=== PATIENT | male | born 1960 | race Caucasian/White ===

== ENCOUNTER 2016-11-24 02:24 | Day surgery (SDC) | payer OTHER ==
[~2016-11-24] VITALS: Ht 182.9 cm; Wt 78.3 kg
[2016-11-24] VITALS (11 sets, daily range): BP systolic 115–154; BP diastolic 75–91; PULSE 65–85; RESP 13–24; O2SAT 95–98
[~2016-11-24 02:24] MED LIST: ASPI-973 PO; NITR0.4T6 SL
[2016-11-24] MEDS ORDERED: Heparin 5,000 Units/500 mL NS Premix IV ONE (11:12)
[2016-11-24] MEDS ORDERED: Heparin 1,000 Units/500 mL NS Premix IV ONE (11:12)
--- NOTE | 2016-11-24 11:29 | NUR ---
Admit CAMILA Admitted to [facility] about 1045. VSS. Denies pain. IVs started and labs sent. See EMR for further info and assessment. Some Insp wheezes, SPO2 98% on RA without SOB. Procedure and recovery reviewed and verbalizes understanding. Awaiting analytical lab technician.
[2016-11-24 11:36] LABS: BASOPHILS % (AUTO) 0.5 % (0-3); EOSINOPHILS % (AUTO) 0 % (0-5); MONOCYTES % (AUTO) 14.6 % (4-12); Mean Corpuscular Hemoglobin 33.9 pg (27.0-35.0); Mean Corpuscular Volume 97.3 fL (81-100); NEUTROPHILS % (AUTO) 53.4 % (40-74); Platelet Count 179 bil/L (150-400)
[2016-11-24] MEDS ORDERED: Nitroglycerin 50,000 mcg/250 mL D5W Premix IV ONE (12:41)
[2016-11-24] MEDS ORDERED: Verapamil 2.5 mg/mL 2 mL Inj ONE (12:41)
[2016-11-24] MEDS ORDERED: Heparin 1,000 Unit/mL 10 mL Inj ONE ×2 (12:41→13:25)
[2016-11-24] MEDS ORDERED: fentaNYL-PF 50 mCg/mL 2 mL Inj ONE ×2 (12:48→13:23)
[2016-11-24] MEDS ORDERED: Atropine 1 mg/10 mL (Code) Syringe ONE (13:26)
[2016-11-24] MEDS ORDERED: Adenosine 3 mg/mL 2 mL Inj ONE (13:31)
[2016-11-24] MEDS ORDERED: 0.9% Sodium Chloride 250 ML ONE (13:31)
--- NOTE | 2016-11-24 14:30 | DI95 ---
[address] [address] INTERVENTIONAL CARDIAC CATHETERIZATION PATIENT: MIKHAIL PADILLA : 1960 MR#: [id number] ADMIT: 11/24/2016 JOB ID: [id number] PROCEDURE: 1. Fractional flow reserve of the left anterior descending. 2. Fractional flow reserve of the diagonal. 3. Fractional flow reserve of the right coronary artery. 4. Additional angiography of the left coronary system. INDICATION: Borderline lesion in the RCA and moderate disease in the mid LAD. PROCEDURAL DETAILS: The reader and the coders are referred to the procedure log for complete details. Briefly, it was done via right radial approach using a 6-Angolan Voda 3.0 guide and a Rey right guide. FFR in the LAD after 100 mcg of intracoronary adenosine was 0.8. FFR in the diagonal branches, both the superior and inferior, was 0.75, and in the RCA it was 0.87. Thereby, indicating that the LAD was significant and the RCA could safely be deferred. This gentleman has moderate calcification in his coronaries, and this is a true trifurcation lesion with each of the three vessels being fairly significant. He will be brought back another time and this case shall be done with an 8-Angolan system via right femoral approach, and I plan to do a rotablation in the LAD. The other alternative would be single-vessel bypass. I will be discussing all this with the patient and Dr. Nath.
--- NOTE | 2016-11-24 14:47 | NUR ---
To optical laboratory mechanic/recovery To propagator laborer at 1230. Returned about 1425. Denies pain VSS. Tele SR. TR band intact to right wrist. Small dot of blood on ultrafoam under TR band. Radial pulse palp. Denies numbness or tingling. Taking po well. Continue to monitor per orders.
[2016-11-24] MEDS ORDERED: METO50TA3 PO (15:50)
[2016-11-24] MEDS ORDERED: CLOP75TA28 PO (15:50)
--- NOTE | 2016-11-24 17:22 | NUR ---
Care transfer/Discharge instructions VSS. TR band slowly removed after 2 hours at 1715. Up and ambulating. Discharge instructions given, see sheets. Verbalizes understanding. 1 IV removed intact, right arm. Care transferred to Rahat Rosen RN.
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
== END 2016-11-24 23:59 | disposition home or self-care (01) ==
LOC: SOUO 02:24
PROVIDERS: ATTEND Internal Medicine
DX: I25.10 Atherosclerotic heart disease of native coronary artery without angina pectoris (principal); I25.84 Coronary atherosclerosis due to calcified coronary lesion; I35.0 Nonrheumatic aortic (valve) stenosis; F17.200 Nicotine dependence, unspecified, uncomplicated; I65.29 Occlusion and stenosis of unspecified carotid artery; F17.210 Nicotine dependence, cigarettes, uncomplicated; Z79.82 Long term (current) use of aspirin
CPT/HCPCS: 36415; 80048; 85025; 93454; 93571; 93572; 99152; 99153; C1769; C1887; C1894; J0153; J1200; J1644; J2060; J2250; J3010; J7030; J7050; Q9967

== ENCOUNTER 2016-12-12 00:39 | Day surgery (SDC) | payer OTHER ==
[2016-12-12] VITALS (27 sets, daily range): BP systolic 108–161; BP diastolic 73–90; PULSE 50–72; RESP 11–20; O2SAT 94–98
[~2016-12-12] VITALS: Ht 182.9 cm; Wt 73.2 kg
[~2016-12-12 00:39] MED LIST changes: +CLOP75TA28 PO; +METO50TA3 PO
[2016-12-12] MEDS ORDERED: 0.9% Sodium Chloride 1,000 ML ONE ×2 (07:21→12:47)
[2016-12-12 08:14] LABS: BASOPHILS % (AUTO) 0.3 % (0-3); EOSINOPHILS % (AUTO) 0 % (0-5); MONOCYTES % (AUTO) 14.3 % (4-12); Mean Corpuscular Hemoglobin 33.6 pg (27.0-35.0); NEUTROPHILS % (AUTO) 64.2 % (40-74); Platelet Count 161 bil/L (150-400)
[2016-12-12 08:32] LABS: INR 0.94 ratio
[2016-12-12] MEDS ORDERED: Heparin 1,000 Units/500 mL NS Premix IV ONE (09:56)
[2016-12-12] MEDS ORDERED: Nitroglycerin 50,000 mcg/250 mL D5W Premix IV ONE ×2 (09:59→10:36)
--- NOTE | 2016-12-12 10:17 | NUR ---
Admitted today through [facility] for a planned PCI using rotoblade for calcification. Admits pain free in a NSB. Patient has anterior chest pain discomfort on and off usually relief is felt with rest. Patient is also experiencing exertional shortness of breath. Patient's is here today as support and local delivery truck driver home. Pt transferred to the slab installer at 1015.
[2016-12-12] MEDS ORDERED: Adenosine Inj 20 ML IV ONE (10:25)
[2016-12-12] MEDS ORDERED: Adenosine Inj 0 ML IV ONE (10:25)
[2016-12-12] MEDS ORDERED: 0.9% Sodium Chloride 0 ML ONE (10:26)
[2016-12-12] MEDS ORDERED: 0.9% Sodium Chloride 250 ML ONE ×2 (10:27→11:16)
[2016-12-12] MEDS ORDERED: fentaNYL-PF 50 mCg/mL 2 mL Inj ONE (10:31)
[2016-12-12] MEDS ORDERED: Eptifibatide 20,000 mCg/10 mL Inj ONE ×3 (11:14→11:27)
[2016-12-12] MEDS ORDERED: NitroPRUSSIDE 25,000 mCg/mL 2 mL Inj IV ONE (11:15)
[2016-12-12] MEDS ORDERED: 0.9% Sodium Chloride 500 ML ONE (11:59)
--- NOTE | 2016-12-12 13:11 | DI95 ---
[address] [address] INTERVENTIONAL CARDIAC CATHETERIZATION PATIENT: MIKHAIL PADILLA : 1960 MR#: [id number] ADMIT: 12/12/2016 JOB ID: [id number] DATE: 12/12/2016 PROCEDURE: Percutaneous intervention of the LAD and diagonal bifurcation. INDICATION: Recurrent angina. PROCEDURAL DETAILS: These have been enumerated in the procedure log. Briefly it was done via right femoral approach using an 8-Thai system. An 8-Thai Voda four guide was used to cannulate the left main. We then placed a wire in the LAD as well as in the second diagonal the second diagonal bifurcates the superior branch because of its adverse takeoff could not be selectively cannulated. We did a FFR of the LAD as well as the diagonal. The LAD FFR was 0.79 and in the diagonal it was 0.77. We then did an IVUS of the LAD. The LAD angiographically appeared to be either diffusely diseased or just a small caliber vessel. IVUS confirmed that the LAD itself in its mid to distal segment was a small caliber vessel with no significant atherosclerosis. It also showed that the calcification at the bifurcation was not circumferential and thereby did not require rotablation. At this point, we decided to balloon angioplasty the diagonal. During this, thrombus were formed. Somewhere around this time, it was noted that the patient probably had not received heparin. He was given 9000 units of intravenous heparin and a few minutes subsequent to giving the heparin, he started forming thrombus in the coronary. This thrombus formation was treated with aspiration with an expressway as well as a Pronto catheter. Multiple balloon inflations were done in the diagonal and the LAD. We were subsequently able to restore flow in both the vessels. During this time, intracoronary Integrilin was also given. Following that, we did a bifurcation restenting. A 2.25 x 23 mm Xience drug-coated stent was placed in the diagonal and a 2.25 x 15 mm stent was placed in the LAD simultaneous balloon inflations were then done. Final angiographic results were excellent. The patient is advised to stay on dual antiplatelet therapy for one year post procedure.
--- NOTE | 2016-12-12 14:34 | NUR ---
Confirmed skilled laborer to pull sheath at 1430 - skilled laborer staff will come as soon as possible. Sheath in right femoral artery secured and non-tender.
--- NOTE | 2016-12-12 15:49 | NUR ---
Sheath pulled at 1530 - confirmed BR 2 hours post manual hold by Dr Anderson.
--- NOTE | 2016-12-12 17:37 | NUR ---
Transferred up to room 2004 after 2 hours of bed rest post sheath pull - manual hold patient is Ok per Dr Anderson to get up. Noted minimal track ooze from Right femoral artery - no firmness/hematoma noted - patient denies pain at right femoral access site. Access site Dressing changed with RN Barbara Rosen during bedside groin assessment report. Verbal report given prior to transfer to room. Plan is to monitor overnight on Tele. NSB - NSR depending on activity.
--- NOTE | 2016-12-12 19:17 | NUR ---
Arrived to [facility] Pt arrived to [facility] room 2004 from [facility] post heart cath at ~1730 this evening. Pt A&Ox3, denied pain, VSS on RA. Pt's groin site assessed with CAMILA RN who reported a small track ooze still present which was present when dressing changed. Pt assisted to BR and dressing assessed after ambulation revealing minimal shadowing and then showed minimal sanguineous drainage when assessed ~30min later. This drainage was unchanged when assessed at shift change with oncoming KRISHNA RN. Surrounding tissues remained soft to palpation and distal pulse intact.
[2016-12-13 03:12] VITALS: BP 113/74; PULSE 74; RESP 20; O2SAT 97
--- NOTE | 2016-12-13 05:02 | NUR ---
Groin Site Right groin site soft non-tender with no hematoma noted. Pulses are weak but palpable. Some drainage noted at beginning of shift that is unchanged. Pt stated that he had mild CP and did not reported it to nursing at the beginning of the shift and has no further complaints the remainder of shift. Instructed pt to inform nursing if there is anymore CP. VSS and Tele SB/R 50's to 60's.
[2016-12-13 08:34] VITALS: BP 114/76; PULSE 52; RESP 20; O2SAT 99
--- NOTE | 2016-12-13 10:46 | NUR ---
Social Work Note: Brief Note/Discharge Data& Assessment: EMR reviewed. Per pt is medically ready for discharge. SW met with pt at bedside to confirm discharge plan and assess for any unmet needs. Chalo Anderson is a 56 year old male cardiac pt here for coronary artery disease. Pt has [employer] insurance coverage. Pt sees Petra Gomes MD for primary care. Pt lives in [place] with his and is independent at baseline. Pt transporting him home today. Pt denies any other needs, no other discharge needs identified. All updated and agreeable to plan. Plan: Per pt is medically ready for discharge home via POV. Pt transporting him home today. Pt denies any other needs, no other discharge needs identified. All updated and agreeable to plan. ROOSEVELT Agee
[2016-12-13 11:14] VITALS: PULSE 54
[2016-12-13] MEDS ORDERED: ASPI-973 PO (11:16)
[2016-12-13] MEDS ORDERED: CLOP75TA28 PO (11:16)
[2016-12-13] MEDS ORDERED: LIP40 PO (11:16)
--- NOTE | 2016-12-13 11:27 | PCM.DIMED ---
Discharge Instructions Date of Service Dec 13, 2016 Dates of Hospitalization Discharge Diagnosis Discharge Diagnosis PCI. CAD. Medication Instructions Activity Prescription as discussed. Lift nor more than 10 pounds for one week after Cath. See PCP and Cardiology, Dr. Amos Nath in one week; and prior to driving or return to work. To ED by EMS if any CP. Meds as discussed, including especially Plavix, and ECASA daily are critical. Lipitor is a new med. Patient Instructions Follow-up with PCP in: 1 week Provider: Kiara Nath MD Follow-up in: 1 week Mehran Delarosa MD Dec 13, 2016 11:27
--- NOTE | 2016-12-13 12:19 | DIS ---
[address] [address] DISCHARGE SUMMARY PATIENT: MIKHAIL PADILLA : 1960 MR#: [id number] ADMIT: 12/12/2016 JOB ID: [id number] DIS: DISCHARGE SUMMARY: DATE OF ADMISSION: Monday, December 12, 2016. DATE OF DISCHARGE: Tuesday, December 13, 2016. ADMITTING DIAGNOSIS: Coronary artery disease. DISCHARGE DIAGNOSES: 1. Percutaneous coronary intervention of left anterior descending and diagonal. 2. CAD (coronary artery disease). DISCHARGE SUMMARY: I was asked to see this 56-year-old man today, Tuesday, December 13, 2016, after PCI done yesterday on LAD and diagonal bifurcation. He has done well post catheterization without any chest pain or clinical events. He was hydrated and had good urine output. Postprocedure ECG was unremarkable. There has been no difficulty with his right groin access site. I spoke with him this morning. He says, "I feel great." He is ambulatory and feels well to go home. We discussed his history including the dizziness that led to his cardiac evaluation. None of that is active at the time of this admission. EXAMINATION: Vital signs stable with blood pressure 114/76 and heart rate 52 to 70. NECK: Carotid upstroke intact bilaterally without bruits except for transmitted murmur from his known aortic stenosis. Jugular venous pressure normal. HEART AND LUNGS: Unremarkable, except note short mid peaking grade 2-3/6 systolic ejection murmur at the base radiating to the neck which is unimpressive, which is consistent with aortic stenosis but not impressive for hemodynamically significant aortic stenosis. EXTREMITIES: The right femoral artery access site is fully intact with almost no ecchymosis, no hematoma, intact pulse, no pulsatile mass and no bruit. Pedal pulses at the right foot are not palpable, and the dorsalis pedis pulse on the left foot is strong. This may be consistent with the incidental finding of occluded superficial femoral artery noted on the sheath angiogram done for arterial access closure yesterday. ASSESSMENT: Stable post percutaneous coronary intervention. PLAN: 1. Discharge home with today. 2. Follow up with Dr. Nath in one week prior to resuming work, driving, or other activity. 3. Do not lift more than 10 pounds for seven days after catheterization. 4. Followup also in one week with primary care physician. 5. Discharge medicines that I discussed at length with him include: a. ECASA 81 mg daily. b. Critical to not miss mandatory Plavix 75 mg p.o. daily if well tolerated for one year with cardiology follow-up; and we discussed not to stop for any reason without immediate cardiology consultation. c. We added a statin, Lipitor 40 mg daily if no myalgias. d. He will continue metoprolol tartrate 25 mg b.i.d. which has been well tolerated. e. We discussed the critical importance of coronary risk factor management including especially cigarette smoking cessation. He and his are well motivated. 6. Per Dr. Nath, consider cardiac rehab program; and regarding his lightheaded spells might consider neurology consultation, and electrophysiology evaluation for vagal syncope. 7. He knows to return to the ED by EMS immediately if chest pain or any other symptoms. KEMAL
== END 2016-12-13 12:27 | disposition home or self-care (01) ==
LOC: SOUO 00:39 → PCC 17:37 → SOUO 12-13 12:27
PROVIDERS: ATTEND Internal Medicine Cardiovascular Disease
DX: I25.119 Atherosclerotic heart disease of native coronary artery with unspecified angina pectoris (principal); I24.0 Acute coronary thrombosis not resulting in myocardial infarction; I35.0 Nonrheumatic aortic (valve) stenosis; F17.210 Nicotine dependence, cigarettes, uncomplicated; Z79.82 Long term (current) use of aspirin
CPT/HCPCS: 36415; 80048; 85025; 85610; 92978; 93005; 93571; 93572; 99152; 99153; C1725; C1753; C1757; C1769; C1874; C1887; C9600; C9601; J0153; J1200; J1644; J2060; J2250; J3010; J7030; J7040; J7050; Q9967

== ENCOUNTER 2017-05-24 01:03 | Day surgery (SDC) | payer OTHER ==
[2017-05-23 17:55] VITALS: BP 160/92; PULSE 98; RESP 22; O2SAT 98
[2017-05-23 18:00] VITALS: BP 152/78; PULSE 93; RESP 13; O2SAT 98
[2017-05-23 18:05] VITALS: BP 161/93; PULSE 91; RESP 12; O2SAT 98
[~2017-05-24] VITALS: Ht 180.3 cm; Wt 76.6 kg
[2017-05-24] VITALS (20 sets, daily range): BP systolic 101–128; BP diastolic 60–76; PULSE 52–75; RESP 12–24; O2SAT 95–99
[~2017-05-24 01:03] MED LIST changes: +LIP40 PO
[2017-05-24] MEDS ORDERED: fentaNYL-PF 50 mCg/mL 2 mL Inj ONE (01:04)
[2017-05-24] MEDS ORDERED: HYDROmorphone 1 mg/mL Inj ONE (01:04)
[2017-05-24] MEDS: 0.9% Sodium Chloride 1,000 ML IV SCH ×2 (07:20→15:53)
[2017-05-24 07:29] LABS: BASOPHILS % (AUTO) 0.3 % (0-3); EOSINOPHILS % (AUTO) 0 % (0-5); MONOCYTES % (AUTO) 10.9 % (4-12); NEUTROPHILS % (AUTO) 68.9 % (40-74); Platelet Count 136 bil/L (150-400)
[2017-05-24 07:47] LABS: INR 0.95 ratio
[2017-05-24] MEDS ORDERED: Heparin 1,000 Unit/mL 10 mL Inj ONE (07:52)
[2017-05-24] MEDS ORDERED: Heparin 10,000 Unit/1,000 mL NS Premix IV ONE ×2 (07:52→09:59)
--- NOTE | 2017-05-24 08:40 | PCM.HPANE ---
Patient Data Surgeon Admitting Provider: Attending Provider:August Anderson MD Primary Care Physician:Mireya Lambert MD Other Provider: Reason for Visit Peripheral Vascular Disease,Unspecified Ht/WT & BMI Height (Feet): 5 Height (Inches): 11.00 Weight (Kilograms): 77.270 Body Mass Index 23.85 Allergies Coded Allergies: varenicline (Verified Adverse Reaction, Severe, 12/12/16) Nightmares Past Anesthesia History Anesthesia History: Denies:: Anesthesia Reactions Diabetes History Hx Diabetes?: No MRSA MRSA: No Medications Active Scripts Atorvastatin (Lipitor)40 Mg [id number] Mg PO DAILY #30 TABLET Ref 0 Prov:Mehran Delarosa MD 12/13/16 Clopidogrel 75 Mg [id number] Mg PO DAILY #30 TABLET Ref 12 Prov:Mehran Delarosa MD 12/13/16 Aspirin 81 Mg [id number] Mg PO DAILY #30 Ref 12 Prov:Mehran Delarosa MD 12/13/16 Reported Medications Metoprolol Tartrate 50 Mg [id number] Mg PO BID 30 Days Ref 0 11/24/16 Nitroglycerin SL 0.4 Mg Tab.subl0.4 Mg SL 11/23/16 History History of ENT Problems?: No HEENT History: Denies:: Cataracts Dysphagia Glaucoma Sinus Problem Denture Type: Full- Upper Partial- Lower Teeth Condition: Missing Teeth Hx of Heart Problems?: Yes Cardiovascular History: Positive for:: Cardiac Surgery (cath, stents) Chest Pain Heart Murmur Irregular Heartbeat Peripheral Vascular Denies:: Congestive Heart Failure Edema Hypertension Hx of Respiratory Problem?: No Respiratory History: Denies:: Asthma Chest Surgery Dyspnea Pneumonia Tuberculosis Hx Neurologic Problems?: No Neurological History: Positive for:: Dizziness (Lightheadedness) Denies:: CVA Dementia Headaches Parkinson's Disease Seizures Hx of GI Problems?: No Hx of Problems?: No HX of Peritoneal Dialysis: No Hx Musculoskeletal Problems?: No Musculoskeletal History: Denies:: Back Injury Joint Replacement Hx of Psycho/Social Problems?: No Hx Surgeries?: No Hx Any Other Health Problems?: No Other History: Denies:: Cancer Hospitalization Thyroid Disease History Blood Transfusions: Positive for:: Accept Blood Products? Denies:: Blood Transfuse Reaction Blood Transfusions Hx Diabetes: No Hx Alcohol Use: NoHx Substance Use: No Smoking Status: Current Every Day Smoker Heavy Tobacco Smoker Have You Smoked inLast 12 mo: Yes (very occasional) Stop/Bang Risk Assessment Category Category 1A: Patient has history of documented sleep apnea, and HAS NOT received any narcotic, sedative or anesthesia administration during this stay. Category 1B: Patient has history of documented sleep apnea, and HAS received any narcotic , sedative or anesthesia administration during this stay Category 2: Patient has SUSPECTED Obstructive Sleep Apnea, and HAS received any narcotic , sedative or anesthesia administration during this stay. Category 3: Patient has SUSPECTED Obstructive Sleep Apnea and HAS NOT received narcotic, sedative or anesthesia administration during this stay. Category 4: Outpatient in Procedural Areas with known sleep apnea or who screen positive for High Risk via the STOP/BANG questionnaire. Exam Exam Vital Signs Vital Signs Date Time Temp Pulse Resp B/P Pulse Ox O2 Delivery O2 Flow Rate FiO2 05/24/17 07:13 36.6 63 12 128/69 98 Room Air General Appearance: Alert, Oriented X3, Cooperative, Mild Distress HEENT/AIRWAY: MP 2, Neck Movement (from), Mouth Opening (WNL, Upper full, partial lower) Lungs: Clear to Auscultation Heart: Exam Unremarkable Meds/Labs/Diagnostics Admission Meds Current Medications Sodium Chloride (Normal Saline) 1,000 ml @ 100 mls/hr Q10H IV Last administered on 05/24/17t 07:20; Start 05/24/17 at 07:00 Labs Test 05/24/17 07:15 White Blood Count 8.9th/mm3 (3.8-10.1) Red Blood Count 4.47mil/mm3 (4.40-5.80) Hemoglobin 15.2g/dL (13.8-17.2) Hematocrit 43.8% (41.0-50.0) Mean Corpuscular Volume 98.0fL (81-100) Mean Corpuscular Hemoglobin 34.0pg (27.0-35.0) Mean Corpuscular Hemoglobin Concent 34.7% (32.0-37.0) Red Cell Distribution Width 12.6% (12.3-15.4) Platelet Count 136bil/L (150-400) Neutrophils (%) (Auto) 68.9% (40-74) Lymphocytes (%) (Auto) 19.7% (14-46) Monocytes (%) (Auto) 10.9% (4-12) Eosinophils (%) (Auto) 0% (0-5) Basophils (%) (Auto) 0.3% (0-3) Prothrombin Time 10.2sec (8.1-12.5) Prothromb Time International Ratio 0.95ratio Sodium Level 141mEq/L (134-144) Potassium Level 4.2mEq/L (3.5-5.2) Chloride Level 105mEq/L (97-108) Carbon Dioxide Level 22mmol/L (18-29) Blood Urea Nitrogen 12mg/dL (6-24) Creatinine 0.79mg/dL (0.76-1.27) Estimat Glomerular Filtration Rate 109mL/min (>59) Glucose Level 80mg/dL (60-99) Calcium Level 9.3mg/dL (8.5-10.1) Plan Impression Patient chart reviewed, patient interviewed and anesthestic plan with risks, benefits, and alternatives discussed, and informed consent obtained. ASA Physical Status: ASA2 Mod Systemic Disease Anesthetic Plan: MAC Bene/Risks/Altern/Consents: Yes HP Complete Prior to Induction: Yes Chalo Alarcon MD May 24, 2017 08:39
--- NOTE | 2017-05-24 10:59 | PCM.ANEP1 ---
Post Anesthesia PACU Phase 1 Assessment Vital Signs Vital Signs Date Time Temp Pulse Resp B/P Pulse Ox O2 Delivery O2 Flow Rate FiO2 05/24/17 07:13 36.6 63 12 128/69 98 Room Air Anesthetic Administered: GA, MAC Level of Alertness: Awake, talking GARLAND's with Equal Strength: Yes Pain: No Nausea or Vomiting: No CV Function & Hydration Stable: Yes Airway Device: Oxygen Delivery: Room Air Lungs: Other PACU Phase 2 Assessment Complications: No Follow up Care: No Patient Instructions Provided: N/A Chalo Alarcon MD May 24, 2017 10:59
--- NOTE | 2017-05-24 11:14 | DI96 ---
[address] [address] PERIPHERAL CATHETERIZATION/INTERVENTION REPORT PATIENT: MIKHAIL PADILLA : 1960 MR#: [id number] ADMIT: 05/24/2017 JOB ID: [id number] DATE: 05/24/2017 PROCEDURE: 1. Abdominal angiography with runoff. 2. Attempted percutaneous angioplasty on the right superficial femoral artery. INDICATION: Lifestyle limiting claudication. PROCEDURAL DETAILS: The reader is referred to the procedure log as of the coders. Briefly, the procedure was done via left femoral approach with anesthesia support. The patient requested anesthesia. A 4-Nepali sheath was used to access the right femoral artery. Following that, a pigtail catheter was placed in the distal abdominal aorta, and a runoff was performed. Subsequent to that, this could be crossed over into the right side, and an Dustin sheath was then placed in the right common femoral artery, and an angioplasty was attempted. ANGIOGRAPHIC FINDINGS: 1. Distal abdominal aorta. This appears to be normal caliber. It is calcified. Bilateral iliacs are patent. The right common iliac artery has calcification and about 20% to 30% disease. 2. The internal iliac arteries are bilaterally patent. The right common iliac artery distally, at the takeoff of the internal iliac, has about a 30% to 40% lesion. 3. The external iliac arteries are bilaterally patent. There is mild calcification that extends into the common femoral arteries bilaterally. 4. Right-sided findings. Right profunda is patent. Right common femoral, as mentioned, has popcorn calcification. No critical stenosis; however, is noted. 5. The right SFA is totally occluded at its ostium. 6. It reconstitutes around the proximal part of the adductor canal. It appears to be a short segment occlusion. 7. The left SFA and the profunda are both patent. Mild luminal irregularities are noted. 8. Bilateral popliteal arteries are patent. 9. There appears to be three-vessel runoff up until the ankles bilaterally. INTERVENTIONAL REPORT: We then took a Glidewire and a rim catheter and crossed over into the contralateral side. Following that, an Dustin sheath was placed in the right common femoral artery. We initially tried to cross this with a glide catheter and a Glidewire. However, there was heavy calcification and fibrosis at the proximal cap. We were able to cross the proximal cap with a Frontrunner. Distally, there was a fibrous cap with some calcification, which was hard to cross. We were subintimal. We tried to redirect the catheter back into the true lumen, but were unsuccessful. Multi-view angiography revealed that this area was not well-suited for re-entry with an Outback catheter. It would be more appropriate to re-cannulize this gentleman via popliteal access. Even though this was not a very long lesion, and we were successfully able to get it across the proximal cap, I decided to terminate the procedure and bring the patient back for repeat intervention via popliteal access.
--- NOTE | 2017-05-24 12:51 | NUR ---
Left groin stable and unchanged, pt assisted off bedrest.
--- NOTE | 2017-05-24 13:15 | NUR ---
Pt c/o right inner thigh tightness.On exam area is visibly swollen c/o left side and firmer to palpation.No c/o pain.Dr Anderson called and informed, order received to obtain stat ct pelvis to r/o perforation left femoral artery.
--- NOTE | 2017-05-24 13:32 | NUR ---
Returned from Ct dept.Pt remains stable. Left groin soft.Right inner thigh area soft, i had applied manual pressure over site pending ct scan.No c/o pain. Will keep pt on bedrest until CT results are back. Pt informed, he is agreeable, V.S.S.
--- NOTE | 2017-05-24 13:52 | DRSVH ---
PROCEDURE: CT PELVIS WITHOUT CONTRAST ([id number]) INDICATIONS: RULE OUT PERFORATION TECHNIQUE: After the administration of oral contrast, 5 mm thick sections acquired from the iliac crests to the symphysis. 5 mm coronal and sagittal reformats were then performed. For radiation dose reduction, t robin following was used: automated exposure control, adjustment of mA and/or kV according to patient s ize. COMPARISON: [facility], CT, CT ABD PELVIS W&WO CON IVP, 01/23/2017, 12:06. FINDINGS: Image quality: Excellent. Peritoneum and bowel: Bowel loops demonstrate normal wall thickness and caliber. No intraperitoneal free fluid or air. Genitourinary: There is dense contrast within the urinary bladder and distal ureters from excreted co ntrast related to recent cardiac catheterization. There are small right posterior bladder diverticul a. Nodes and vessels: No iliac, pelvic, or inguinal adenopathy by size criteria. Iliac vessels demonst rate normal size. Bones: No suspicious bony lesions. Pelvic ring and hip joints appear intact. Miscellaneous: There is a large hematoma in the right inguinal region adjacent to the common femoral vessels. There are intramuscular hematomas also demonstrated within the right adductor compartment with associated enlargement of the adductor muscles. There is mild fat stranding in the left inguina l region. No inguinal hernias. IMPRESSION: 1. Right inguinal hematoma as well as extensive hematoma within the right adductor compartment muscu lature. Active extravasation cannot be excluded in the absence of intravenous contrast. A pseudoane urysm also cannot be excluded. If indicated further evaluation may be obtained with Doppler ultrasou nd. Dictated by: Amish Cruz M.D. on 05/24/2017 at 13:44 Approved by: Amish Cruz M.D. on 05/24/2017 at 13:51
--- NOTE | 2017-05-24 14:30 | NUR ---
Right thigh unchanged, firm not painful, labs drawn.
[2017-05-24 14:47] LABS: BASOPHILS % (AUTO) 0.3 % (0-3); EOSINOPHILS % (AUTO) 0 % (0-5); MONOCYTES % (AUTO) 9.5 % (4-12); Mean Corpuscular Hemoglobin 33.9 pg (27.0-35.0); NEUTROPHILS % (AUTO) 58.4 % (40-74); Platelet Count 119 bil/L (150-400)
--- NOTE | 2017-05-24 15:10 | NUR ---
Pt tx to room by Daisy Peters R.N. I asked her to have Lawanda Childress (who is the accepting R.N on 2nd floor) to call Dr young with patient's CBC result.Pt stable at transfer, right thigh and left groin access site are both unchanged from previous assessment.
--- NOTE | 2017-05-24 17:49 | NUR ---
Arrived 1457 - Report received from Hortensia LEAL in [facility]. 1510 - He arrived to [facility] 2021. A&Ox3, no complaints of pain. Checked right thigh (firm) and left groin site (clean, dry, and intact) with the transferring nurse. The nurse said that Hortensia said to check the patient's H/H and Dr. Dickens may need to be called. H/H 13.5/39.0 which is a slight drop from the previous one, but is stable. Dr. Dickens not contacted. Pt said he felt great and denied any pain. Bedrest till 1700. Told the patient to call the first time he gets up. 1719 - Checked on the patient who said he had gotten up already and walked to the window. He put his pants and shoes on and then went for a walk around the hallways. He is tolerating it well. Informed him to call staff should he starting feeling pain or more swelling in his right leg. He agreed to do so. He said it felt good to get up, stretch his muscles, and walk. Care continues. Addendum: 05/24/17 at 1929 by ROSENDO LOWE RN Addendum: When receiving report from Hortensia LEAL in [facility] she said that the patient did not need to be on telemetry when he came to the unit. Repeated this information back to her and she acknowledged that he did not need to be on telemetry. Care continues.
[2017-05-24 20:40] LABS: BASOPHILS % (AUTO) 0.3 % (0-3); EOSINOPHILS % (AUTO) 0 % (0-5); Mean Corpuscular Hemoglobin 33.8 pg (27.0-35.0); Mean Corpuscular Volume 98.1 fL (81-100); NEUTROPHILS % (AUTO) 59.9 % (40-74); Platelet Count 111 bil/L (150-400)
[2017-05-25] MEDS: 0.9% Sodium Chloride 1,000 ML IV SCH (02:47)
[2017-05-25] MEDS ORDERED: 0.9% Sodium Chloride 250 ML IV PRN (03:42)
[2017-05-25] MEDS ORDERED: 0.9% Sodium Chloride 1,000 ML IV PRN (03:42)
[2017-05-25] MEDS ORDERED: Ondansetron 2 mg/mL 2 mL Inj IVPUSH PRN (03:45)
[2017-05-25 03:50] VITALS: PULSE 52
[2017-05-25 03:55] VITALS: BP 117/66; PULSE 56; RESP 16; O2SAT 96
[2017-05-25 04:16] LABS: BASOPHILS % (AUTO) 0.4 % (0-3); EOSINOPHILS % (AUTO) 0 % (0-5); MONOCYTES % (AUTO) 16.5 % (4-12); Mean Corpuscular Hemoglobin 33.1 pg (27.0-35.0); Mean Corpuscular Volume 97.8 fL (81-100); NEUTROPHILS % (AUTO) 59.2 % (40-74); Platelet Count 111 bil/L (150-400)
[2017-05-25 04:37] VITALS: PULSE 49
--- NOTE | 2017-05-25 05:36 | NUR ---
Hemodynamically Stable: Pt placed on telemetry monitoring at the beginning of the shift as per MD order. Pt noted to be SB in the 50s to SR in the 60s. H&H remained stable. No changes noted to right thigh hematoma or left groin site. H&H this am is 12 and 35.5. No c/o pain throughout the night. R dorsalis pedis pulse audible with doppler. Will cont. to monitor.
[2017-05-25 08:00] VITALS: BP 127/80; PULSE 51; PULSE 55; RESP 16; O2SAT 99
[2017-05-25 12:00] VITALS: BP 150/80; PULSE 51; RESP 16; O2SAT 100
--- NOTE | 2017-05-25 13:35 | PCM.DIMED ---
Discharge Instructions Date of Service May 25, 2017 Dates of Hospitalization 05/24/2017 Discharge Diagnosis Discharge Diagnosis PAD, Attempted percutaneous angioplasty on the right superficial femoral artery. Medication Instructions Additional med instructions Please continue current medications without change Diet Discharge Diet: Low fat, Low Sodium, Heart Healthy Activity Discharge Activity: Other (Please see below) Call your provider Call your provider for: Shortness of breath, Bleeding, Chest pain Patient Instructions Patient Instructions No car driving for couple of days; you can have shower starting today; please do not soak in bath tub for one week; no heavy lifting, no more than 7-10 lb for one week, otherwise please be physically active as tolerated. Follow-up plan Check CBC and BMP in one week Guero Arce PA-C May 25, 2017 13:35
--- NOTE | 2017-05-25 13:54 | PCM.DC.MED ---
Discharge Summary Date of Service May 25, 2017 Dates of Hospitalization Date of Hospital Admission 05/24/2017 Date of Discharge: May 25, 2017 Providers: Admitting Physician: Primary Care Physician: Mireya Lambert MD Attending Physician: August Anderson MD Diagnosis at Time of Discharge Diagnosis at Time of Discharge PAD, Attempted percutaneous angioplasty on the right superficial femoral artery. Brief History This is a very pleasant 56 y/o gentleman with hx of CAD. He also has bicuspid aortic valve which is moderately calcified without significant . The patient also has peripheral artery disease with occluded right SFA ostially. Hospital Course On 05/24/2017 the patient had elective attempted percutaneous angioplasty on the right superficial femoral artery. Dr. Anderson decided to terminate the procedure and bring the patient back for repeat intervention via popliteal access. For more details please refer to [employer] Dr. Ordoñez procedure report from 05/24/2017. The patient currently is doing well. His left groin are (access site) is nontender with palpation, no bruising , no hematoma, no bleeding, no bruits with auscultation. He ambulates freely. He denies having any chest discomfort or SALGUERO. Labs are looking stable and he is stable hemodynamically. On telemetry sinus rhythm with HR in 50s. He will continue his usual outpatient medications. Exam Vital Signs (Last) Date Time Temp Pulse Resp B/P Pulse Ox O2 Delivery O2 Flow Rate FiO2 05/25/17 12:00 37.0 51 16 150/80 100 Room Air Exam General: no acute distress EENT: MMM, sclerae unicteric Neck: supple, no thyromegaly Pulmo: normal breathing sounds bilaterally, no crackles, no wheezing Cardio: RRR, systolic murmur 2/6 on the base and at PMI, JVP is not elevated Abdomen: nontender with palpation Extremities: no LE edema Neuro: A&Ox3, no gross abnormalities Test 05/24/17 07:15 05/25/17 03:45 Prothrombin Time 10.2sec (8.1-12.5) Prothromb Time International Ratio 0.95ratio White Blood Count 7.3th/mm3 (3.8-10.1) Red Blood Count 3.63mil/mm3 (4.40-5.80) Hemoglobin 12.0g/dL (13.8-17.2) Hematocrit 35.5% (41.0-50.0) Mean Corpuscular Volume 97.8fL (81-100) Mean Corpuscular Hemoglobin 33.1pg (27.0-35.0) Mean Corpuscular Hemoglobin Concent 33.8% (32.0-37.0) Red Cell Distribution Width 12.4% (12.3-15.4) Platelet Count 111bil/L (150-400) Neutrophils (%) (Auto) 59.2% (40-74) Lymphocytes (%) (Auto) 23.6% (14-46) Monocytes (%) (Auto) 16.5% (4-12) Eosinophils (%) (Auto) 0% (0-5) Basophils (%) (Auto) 0.4% (0-3) Sodium Level 138mEq/L (134-144) Potassium Level 4.6mEq/L (3.5-5.2) Chloride Level 102mEq/L (97-108) Carbon Dioxide Level 25mmol/L (18-29) Blood Urea Nitrogen 12mg/dL (6-24) Creatinine 0.67mg/dL (0.76-1.27) Estimat Glomerular Filtration Rate 131mL/min (>59) Glucose Level 117mg/dL (60-99) Calcium Level 8.9mg/dL (8.5-10.1) Discharge Medications Discharge Medications Aspirin (Aspirin) 81 Mg Tablet 81 MG PO DAILY Prescribed by: MICKY GILLIAM MD Atorvastatin (Lipitor) 40 Mg Tablet 40 MG PO DAILY Prescribed by: MICKY GILLIAM MD Clopidogrel (Clopidogrel) 75 Mg Tablet 75 MG PO DAILY Prescribed by: MICKY GILLIAM MD Metoprolol Tartrate (Metoprolol Tartrate) 50 Mg Tablet 25 MG PO BID (Reported) Miscellaneous Medications Nitroglycerin SL (Nitroglycerin SL) 0.4 Mg Tab.subl 0.4 MG SL (Reported) Additional med instructions Please continue current medications without change Followup Plan Follow-up plan Check CBC and BMP in one week Discharge Diet: Low fat, Low Sodium, Heart Healthy Discharge Activity: Other (Please see below) Patient Instructions No car driving for couple of days; you can have shower starting today; please do not soak in bath tub for one week; no heavy lifting, no more than 7-10 lb for one week, otherwise please be physically active as tolerated. Guero Arce PA-C May 25, 2017 13:54
--- NOTE | 2017-05-25 14:25 | NUR ---
Discharge of patient Reviewed discharge instructions with patient. Patient verbalized understanding. Patient discharged by walking out. IV and Telemetry previously discontinued. Patient left hospital with to home self care.
[2017-06-12] MEDS ORDERED: METO25TA6 PO (06:44)
[2017-06-12] MEDS ORDERED: CLOP75TA28 PO (16:52)
[2017-06-12] MEDS ORDERED: ASPI-973 PO (16:52)
[2017-06-12] MEDS ORDERED: ATOR40TA69 PO (16:52)
== END 2017-05-25 14:20 | disposition home or self-care (01) ==
LOC: SOUO 01:03 → PCC 15:01 → SOUO 05-25 14:20
PROVIDERS: ATTEND Internal Medicine Cardiovascular Disease
DX: I70.211 Atherosclerosis of native arteries of extremities with intermittent claudication, right leg (principal); Z53.8 Procedure and treatment not carried out for other reasons; I70.92 Chronic total occlusion of artery of the extremities; I70.8 Atherosclerosis of other arteries; I25.119 Atherosclerotic heart disease of native coronary artery with unspecified angina pectoris; E78.5 Hyperlipidemia, unspecified; Z87.891 Personal history of nicotine dependence; Q23.1 Congenital insufficiency of aortic valve; Z79.82 Long term (current) use of aspirin; Z79.02 Long term (current) use of antithrombotics/antiplatelets
CPT/HCPCS: 36415; 37224; 72192; 75716; 80048; 85025; 85610; 86922; C1729; C1730; C1760; C1769; C1887; J1170; J1644; J2250; J3010; J7030; Q9967

== ENCOUNTER → 2017-06-12 | Day surgery (SDC) | payer OTHER ==
[2017-06-12] VITALS (22 sets, daily range): BP systolic 111–151; BP diastolic 50–84; PULSE 44–60; RESP 11–21; O2SAT 98–100
[~2017-06-12] VITALS: Ht 180.3 cm; Wt 75.0 kg
[~2017-06-12] MED LIST changes: +0.9% Sodium Chloride 1,000 ML IV ONE; +0.9% Sodium Chloride 1,000 ML IV PRN; +0.9% Sodium Chloride 250 ML IV PRN; +0.9% Sodium Chloride 500 ML ONE; +ATOR40TA69 PO; +Atropine 0.4 mg/mL Inj IVPUSH PRN; +Atropine 1 mg/10 mL (Code) Syringe IVPUSH PRN; +EPHEDrine Sulfate 50 mg/mL Inj IVPUSH PRN; +EPHEDrine/NS 5 mg/mL 5 mL Syringe ONE; +HYDROmorphone 1 mg/mL Inj IVPUSH PRN; +Heparin 1,000 Unit/mL 10 mL Inj ONE; +Heparin 10,000 Unit/1,000 mL NS Premix IV ONE; +Labetalol 5 mg/mL 20 mL Inj IV PRN; +Lactated Ringer's 1,000 ML IV SCH; +Lactated Ringer's 500 ML IV PRN; +METO25TA6 PO; +MetoCLOpramide 5 mg/mL 2 mL Inj IVPUSH PRN; +Ondansetron 2 mg/mL 2 mL Inj IVPUSH PRN; +Phenylephrine 10,000 mCg/mL Inj IVPUSH PRN; +Propofol 10,000 mCg/mL 20 mL Inj ONE; +fentaNYL-PF 50 mCg/mL 2 mL Inj IVPUSH PRN; +fentaNYL-PF 50 mCg/mL 2 mL Inj ONE
--- NOTE | 2017-06-12 06:00 | NUR ---
ADMISSION NOTE MALE PT ADMITTED FOR ANGIOPLASTY. DISCUSSED PLAN OF CARE WITH PT AND FAMILY. SEE ADMIT AND FLOW SHEET
[2017-06-12 06:48] LABS: BASOPHILS % (AUTO) 0.6 % (0-3); EOSINOPHILS % (AUTO) 0 % (0-5); INR 0.91 ratio; MONOCYTES % (AUTO) 15.6 % (4-12); Mean Corpuscular Hemoglobin 33.8 pg (27.0-35.0); NEUTROPHILS % (AUTO) 53.6 % (40-74); Platelet Count 141 bil/L (150-400)
--- NOTE | 2017-06-12 07:15 | NUR ---
#16F [id number] [facility] INSERTED
--- NOTE | 2017-06-12 10:37 | NUR ---
POST PROCEDURE NOTE RETURNED FROM [facility]. SEE FLOW SHEET
--- NOTE | 2017-06-12 11:18 | PCM.HPANE ---
Patient Data Surgeon Admitting Provider: Attending Provider:August Anderson MD Primary Care Physician:Mireya Lambert MD Other Provider:Allyn Hilarioingham Anesthesia Reason for Visit Peripheral Vascular Disease Ht/WT & BMI Height (Feet): 5 Height (Inches): 11.00 Weight (Kilograms): 75.000 Body Mass Index 23.15 Allergies Coded Allergies: varenicline (Verified Adverse Reaction, Severe, 06/12/17) Nightmares Past Anesthesia History Anesthesia History: Denies:: Abnormal Airway, Anesthesia Reactions, Difficult Intubation, Fam Anesthesia Reaction, Fam Malignant Hypertherm, Malignant Hyperthermia Diabetes History Hx Diabetes?: No MRSA MRSA: No Medications Active Scripts Atorvastatin (Lipitor)40 Mg [id number] Mg PO DAILY #30 TABLET Ref 0 Prov:Mehran Delarosa MD 12/13/16 Clopidogrel 75 Mg [id number] Mg PO DAILY #30 TABLET Ref 12 Prov:Mehran Delarosa MD 12/13/16 Aspirin 81 Mg [id number] Mg PO DAILY #30 Ref 12 Prov:Mehran Delarosa MD 12/13/16 Reported Medications Metoprolol Tartrate 25 Mg [id number] Mg PO BID 30 Days Ref 0 06/12/17 Nitroglycerin SL 0.4 Mg Tab.subl0.4 Mg SL 11/23/16 Discontinued Reported Medications Metoprolol Tartrate 50 Mg [id number] Mg PO BID 30 Days Ref 0 11/24/16 History History of ENT Problems?: No HEENT History: Denies:: Cataracts Dysphagia Sinus Problem Denture Type: Partial- Lower Teeth Condition: Missing Teeth Hx of Heart Problems?: Yes Cardiovascular History: Positive for:: Cardiac Surgery (cath, stents 11/2016) Chest Pain Heart Murmur Irregular Heartbeat Peripheral Vascular Denies:: Congestive Heart Failure Edema Hypertension Hx of Respiratory Problem?: No Respiratory History: Denies:: Asthma Chest Surgery Dyspnea Pneumonia Tuberculosis Hx Neurologic Problems?: No Neurological History: Positive for:: Dizziness (Lightheadedness) Denies:: CVA Dementia Headaches Parkinson's Disease Seizures Hx of GI Problems?: No Hx of Problems?: No HX of Peritoneal Dialysis: No Hx Musculoskeletal Problems?: No Musculoskeletal History: Denies:: Back Injury Joint Replacement Hx of Psycho/Social Problems?: No Hx Surgeries?: No Hx Any Other Health Problems?: No Other History: Denies:: Cancer Hospitalization Thyroid Disease History Blood Transfusions: Positive for:: Accept Blood Products? Denies:: Blood Transfuse Reaction Blood Transfusions Hx Diabetes: No Hx Alcohol Use: NoHx Substance Use: No Smoking Status: Former Smoker Have You Smoked inLast 12 mo: Yes (very occasional) Stop/Bang Risk Assessment Category Category 1A: Patient has history of documented sleep apnea, and HAS NOT received any narcotic, sedative or anesthesia administration during this stay. Category 1B: Patient has history of documented sleep apnea, and HAS received any narcotic , sedative or anesthesia administration during this stay Category 2: Patient has SUSPECTED Obstructive Sleep Apnea, and HAS received any narcotic , sedative or anesthesia administration during this stay. Category 3: Patient has SUSPECTED Obstructive Sleep Apnea and HAS NOT received narcotic, sedative or anesthesia administration during this stay. Category 4: Outpatient in Procedural Areas with known sleep apnea or who screen positive for High Risk via the STOP/BANG questionnaire. Exam Exam Vital Signs Vital Signs Date Time Temp Pulse Resp B/P Pulse Ox O2 Delivery O2 Flow Rate FiO2 06/12/17 06:00 37.1 55 11 138/69 98 Room Air General Appearance: Alert, Oriented X3, Cooperative, No Acute Distress HEENT/AIRWAY: MP 2, Neck Movement (FROM), Mouth Opening (3 FBMO) Lungs: Clear to Auscultation, Normal Air Movement Heart: Exam Unremarkable, Regular Rate/Rhythm, No Murmurs/Rubs/Gallops Meds/Labs/Diagnostics Admission Meds Current Medications Sodium Chloride (Normal Saline) 1,000 ml @ 100 mls/hr Q10H ONCE IV Last administered on 06/12/17 07:04; Start 06/12/17 at 06:53; Stop 06/12/17 at 16:52 Diphenhydramine HCl (Benadryl Inj) 25 mg IV 1 hour prior ... ONCE ONCE IVPUSH Last administered on 06/12/17 07:39; Start 06/12/17 at 06:55; Stop 06/12/17 at 07:09; Status DC Labs Test 06/12/17 06:00 White Blood Count 5.3th/mm3 (3.8-10.1) Red Blood Count 3.88mil/mm3 (4.40-5.80) Hemoglobin 13.1g/dL (13.8-17.2) Hematocrit 38.4% (41.0-50.0) Mean Corpuscular Volume 99.0fL (81-100) Mean Corpuscular Hemoglobin 33.8pg (27.0-35.0) Mean Corpuscular Hemoglobin Concent 34.1% (32.0-37.0) Red Cell Distribution Width 12.9% (12.3-15.4) Platelet Count 141bil/L (150-400) Neutrophils (%) (Auto) 53.6% (40-74) Lymphocytes (%) (Auto) 29.8% (14-46) Monocytes (%) (Auto) 15.6% (4-12) Eosinophils (%) (Auto) 0% (0-5) Basophils (%) (Auto) 0.6% (0-3) Prothrombin Time 9.7sec (8.1-12.5) Prothromb Time International Ratio 0.91ratio Sodium Level 143mEq/L (134-144) Potassium Level 4.9mEq/L (3.5-5.2) Chloride Level 106mEq/L (97-108) Carbon Dioxide Level 24mmol/L (18-29) Blood Urea Nitrogen 11mg/dL (6-24) Creatinine 0.63mg/dL (0.76-1.27) Estimat Glomerular Filtration Rate 141mL/min (>59) Glucose Level 108mg/dL (60-99) Calcium Level 9.4mg/dL (8.5-10.1) Plan Impression Patient chart reviewed, patient interviewed and anesthestic plan with risks, benefits, and alternatives discussed, and informed consent obtained. NPO per Anesth. Guidelines: Yes ASA Physical Status: ASA2 Mod Systemic Disease Anesthetic Plan: GA, MAC Bene/Risks/Altern/Consents: Yes HP Complete Prior to Induction: Yes Carlos Gallagher MD Jun 12, 2017 08:12
--- NOTE | 2017-06-12 11:18 | PCM.ANEP1 ---
Post Anesthesia PACU Phase 1 Assessment Vital Signs Vital Signs Date Time Temp Pulse Resp B/P Pulse Ox O2 Delivery O2 Flow Rate FiO2 06/12/17 11:00 46 16 128/84 100 Room Air 06/12/17 10:45 45 16 133/72 100 Room Air 06/12/17 10:40 36.6 44 20 137/69 99 Room Air 06/12/17 10:37 49 21 135/65 100 Room Air 06/12/17 06:00 37.1 55 11 138/69 98 Room Air Anesthetic Administered: GA Level of Alertness: Awake, talking GARLAND's with Equal Strength: Yes Pain: No Nausea or Vomiting: No CV Function & Hydration Stable: Yes Airway Device: n/a Oxygen Delivery: Room Air Lungs: Clear to Auscultation, Normal Air Movement Dermatome Level: Full Sensation PACU Phase 2 Assessment Complications: No Follow up Care: N/A Patient Instructions Provided: N/A Carlos Gallagher MD Jun 12, 2017 11:18
--- NOTE | 2017-06-12 14:37 | DRSVH ---
PROCEDURE: US GUIDE FOR VASCULAR ACCESS INDICATIONS: PAD COMPARISON: None. FINDINGS: Sonography was utilized to access the right popliteal artery for surgical planning. IMPRESSION: Sonographic access of the right popliteal artery for surgical planning. Dictated by: Rajeev CURRAN Interpreted: Alphonse Frost MD on 06/12/2017 at 14:26 Approved by: Alphonse Frost M.D. on 06/12/2017 at 14:35
--- NOTE | 2017-06-12 15:05 | DI96 ---
[address] [address] PERIPHERAL CATHETERIZATION/INTERVENTION REPORT PATIENT: MIKHAIL PADILLA : 1960 MR#: [id number] ADMIT: 06/12/2017 JOB ID: [id number] PROCEDURE: 1. Percutaneous intervention on the totally occluded right superficial femoral artery (SFA). 2. Ultrasound-guided popliteal access. PROCEDURAL DETAILS: The reader and the coders are referred to the procedure log for complete details. Briefly this was a very complex procedure with difficult access. Ultrasound guidance as mentioned was used to access the popliteal artery. Anesthesia support was utilized to sedate the patient. A four-Danish sheath was initially placed in the right popliteal artery. After confirming intraluminal placement, this was then switched out for a 55 cm long destination sheath. Following that, we took a Glidewire and a QuickCross catheter. With this, we were able to successfully cross this area of total occlusion and enter the common femoral artery. Following that, the Glidewire was exchanged for a J-wire. Balloon inflations were then done sequentially with a 4.0 and then with a 6.0 balloon. Finally we used a drug-eluting balloon 6.0 x 80 mm and deployed it for 3 minutes. Final angiographic results were excellent. A 4fr pigtail was then places in the distal abdominal aorta and runoff was performed. The RSFA has diffuse disease in its mid segment the R popliteal is patent and there is 2vessel runofff into the foot. The patient is advised to stay on dual antiplatelet therapy for at least three months post procedure. KEMAL
--- NOTE | 2017-06-12 17:36 | NUR ---
Recovery/Discharge Care assumed at 1530. VSS. Right popliteal site without bleeding or hematoma. VSS. Tele Sb. Denies pain. Bedrest complete at 1700. Up in room without change in groin. Discharge instructions reviewed, see sheets. Verbalizes understanding. Discharged ambulatory with and all belongings in no distress at 1720.
== END | disposition home or self-care (01) ==
LOC: SOUO 00:12
PROVIDERS: ATTEND Internal Medicine Cardiovascular Disease
DX: I70.211 Atherosclerosis of native arteries of extremities with intermittent claudication, right leg (principal); I70.92 Chronic total occlusion of artery of the extremities; I25.119 Atherosclerotic heart disease of native coronary artery with unspecified angina pectoris; Q23.1 Congenital insufficiency of aortic valve; E78.5 Hyperlipidemia, unspecified; I65.29 Occlusion and stenosis of unspecified carotid artery; Z87.891 Personal history of nicotine dependence; Z79.82 Long term (current) use of aspirin; Z79.02 Long term (current) use of antithrombotics/antiplatelets; Z95.5 Presence of coronary angioplasty implant and graft
CPT/HCPCS: 36415; 37224; 76937; 80048; 85025; 85610; C1725; C1766; C1769; C1887; C2623; J1200; J1644; J2060; J2704; J3010; J7030; J7040; Q9967